=== PATIENT | female | born 1980 | race Caucasian/White ===

== ENCOUNTER → 2019-09-29 11:24 | Outpatient (CLI) | payer BC ==
[2014-09-21 06:02] VITALS: BMI 37.0
[~2019-09-29 11:24] MED LIST: HYDROCODONE-APA1 TAB PO
== END | disposition home or self-care (01) ==
LOC: D.MRI 09:00
PROVIDERS: ATTEND Specialist
DX: M54.41 Lumbago with sciatica, right side (principal)